=== PATIENT | female | born 1995 | race Caucasian/White ===

== ENCOUNTER 2017-08-01 13:20 | Emergency (ER) | payer OTHER ==
[2017-08-01 13:31] VITALS: BP 136/90
[2017-08-01] MEDS ORDERED: DEXAMETHASONE SOD PHOS INJ 10 MG/1 ML VIAL IM ONE (14:08)
[2017-08-01] MEDS ORDERED: KETOROLAC TROMETHAMINE 60 MG/2 ML SDV IM ONE (14:08)
--- NOTE | 2017-08-01 14:23 | ER Document Report ---
ED Extremity Problem, Upper - General Chief Complaint: Arm Injury Stated Complaint: RIGHT ARM PAIN Time Seen by Provider: 08/01/17 13:40 Mode of Arrival: Ambulatory Information source: Patient Notes: 31-year-old female presents to ED for complaint of right forearm pain on when she was lifting packages and the bag fell over and landed on her forearm. She states the back weighed between 20 and 30 pounds. She states at that time she had bruising and pain but that she does not have pain at this time. She has full range of motion for her arm and wrist. Patient states that she went to take a note to go back to work and they said she needed to go to 1 of the doctors for her Worker's Comp. So she came to the emergency room. There is no need for an x-ray as she was x-rayed at [facility] and she does not have any pain at this time. TRAVEL OUTSIDE OF THE [place] IN LAST 30 DAYS: No - HPI Patient complains to provider of: Right, Forearm Onset: Other - Recent injury: Yes Where: Work Quality of pain: Pressure, Sharp Severity of pain: Gone now Pain Level: Denies Context: Other - Luggage fell on her right forearm at work Associated symptoms: None Exacerbated by: Nothing Relieved by: Nothing Similar symptoms previously: Yes Recently seen / treated by doctor: Yes - Related Data Allergies/Adverse Reactions: No Known Allergies Allergy (Unverified 08/01/17 13:25) Past Medical History - General Information source: Patient - Social History Smoking Status: Never Smoker Cigarette use (# per day): No Chew tobacco use (# tins/day): No Smoking Education Provided: No Frequency of alcohol use: Occasional Drug Abuse: None Occupation: [employer] Lives with: Family Family History: Arthritis, CAD, COPD, DM, Hyperlipidemia, Hypertension, Malignancy, Thyroid Disfunction Patient has suicidal ideation: No Patient has homicidal ideation: No - Past Medical History Cardiac Medical History: Reports: None Pulmonary Medical History: Reports: None EENT Medical History: Reports: None Neurological Medical History: Reports: None Endocrine Medical History: Reports: None Renal/ Medical History: Reports: None Malignancy Medical History: Reports: None GI Medical History: Reports: None Musculoskeltal Medical History: Reports None Skin Medical History: Reports None Psychiatric Medical History: Reports: None Traumatic Medical History: Reports: None Infectious Medical History: Reports: None Past Surgical History: Reports: Hx Adenoidectomy, Hx Oral Surgery - Jaw surgery , Hx Tonsillectomy - Immunizations Immunizations up to date: Yes Review of Systems - Review of Systems Constitutional: No symptoms reported EENT: No symptoms reported Cardiovascular: No symptoms reported Respiratory: No symptoms reported Gastrointestinal: No symptoms reported Genitourinary: No symptoms reported Female Genitourinary: No symptoms reported Musculoskeletal: No symptoms reported Skin: No symptoms reported Hematologic/Lymphatic: No symptoms reported Neurological/Psychological: No symptoms reported -: Yes All other systems reviewed and negative Physical Exam - Vital signs Vitals: Temp Pulse Resp BP Pulse Ox 97.5 F 83 20 136/90 H 100 08/01/17 13:30 08/01/17 13:30 08/01/17 13:30 08/01/17 13:30 08/01/17 13:30 Interpretation: Normal - General General appearance: Appears well, Alert - HEENT Head: Normocephalic, Atraumatic Eyes: Normal Pupils: PERRL - Respiratory Respiratory status: No respiratory distress Chest status: Nontender Breath sounds: Normal Chest palpation: Normal - Cardiovascular Rhythm: Regular Heart sounds: Normal auscultation Murmur: No - Abdominal Inspection: Normal Distension: No distension Bowel sounds: Normal Tenderness: Nontender Organomegaly: No organomegaly - Back Back: Normal, Nontender - Extremities General upper extremity: Normal inspection, Nontender, Normal color, Normal ROM , Normal temperature General lower extremity: Normal inspection, Nontender, Normal color, Normal ROM , Normal temperature, Normal weight bearing. No: Nguyen's sign Forearm: No: Tender, Abrasion, Deformity, Ecchymosis, Instability, Laceration, Other - Neurological Neuro grossly intact: Yes Cognition: Normal Orientation: AAOx4 Lindy Coma Scale Eye Opening: Spontaneous Lindy Coma Scale Verbal: Oriented Lindy Coma Scale Motor: Obeys Commands Lindy Coma Scale Total: 15 Speech: Normal Motor strength normal: LUE, RUE, LLE, RLE Sensory: Normal - Psychological Associated symptoms: Normal affect, Normal mood - Skin Skin Temperature: Warm Skin Moisture: Dry Skin Color: Normal Course - Re-evaluation Re-evalutation: 08/01/17 14:25 No tenderness no bruising range of motion steady unlabored. Will discharge home. - Vital Signs Vital signs: Temp Pulse Resp BP Pulse Ox 97.5 F 83 20 136/90 H 100 08/01/17 13:30 08/01/17 13:30 08/01/17 13:30 08/01/17 13:30 08/01/17 13:30 Discharge - Discharge Clinical Impression: Contusion of right upper arm Qualifiers: Encounter type: initial encounter Qualified Code(s): S40.021A - Contusion of right upper arm, initial encounter Condition: Stable Disposition: HOME, SELF-CARE Instructions: Family Physicians / Practices Additional Instructions: CONTUSION: Your injury has resulted in a contusion -- a crushing of the deep tissues. No injury to important structures was detected during the physician's exam. Contusions vary in the amount of pain they cause, and in the length of time required for healing. Typically, the area will become bruised, and will remain painful to touch for two or three weeks. However, most patients are back to working and playing within a few days. After the initial period of rest and cold-packs, your symptoms (together with the doctor's recommendations) will determine how rapidly you can get back to full activity. Usually this means "do what feels okay, but don't do things that hurt." If re-examination was recommended, it's important to follow up as instructed. Call the doctor or return any time if pain increases, if swelling becomes severe, if you develop numbness or weakness in an injured extremity, or if any other alarming symptoms occur. USE OF TYLENOL (ACETAMINOPHEN): Acetaminophen may be taken for pain relief or fever control. It's much safer than aspirin, offering a wider range of "safe" dosages. It is safe during . Some brand names are Tylenol, Panadol, Datril, Anacin 3, Tempra, and Liquiprin. Acetaminophen can be repeated every four hours. The following are maximum recommended dosages: WEIGHT Dose Drops Elixir Chewable( 80mg) (LBS.) drprs=droppers tsp=teaspoon 6 40 mg 0.4 ml (1/2) 6-11 80 mg 0.8 ml (full) tsp 1 tab 12-16 120 mg 1 1/2 drprs 3/4 tsp 1 1/2 tabs 17-23 160 mg 2 drprs 1 tsp 2 tabs 24-30 240 mg 3 drprs 1 1/2 tsp 3 tabs 30-35 320 mg 2 tsp 4 tabs 36-41 360 mg 2 1/4 tsp 4 1/2 tabs 42-47 400 mg 2 1/2 tsp 5 tabs 48-53 480 mg 3 tsp 6 tabs 54-59 520 mg 3 1/4 tsp 6 1/2 tabs 60-64 560 mg 3 1/2 tsp 7 tabs 65-70 600 mg 3 3/4 tsp 7 1/2 tabs 71-76 640 mg 4 tsp 8 tabs 77-82 720 mg 4 1/2 tsp 9 tabs 83-88 800 mg 5 tsp 10 tabs >89 pounds or adults 650 mg to 900 mg Acetaminophen can be repeated every four hours. Maximum dose not to exceed 4000 mg a day. These maximum recommended dosages are slightly higher than the dosages written on the product container, but these dosages are very safe and below the toxic dosage for acetaminophen. ICE & ELEVATION: Apply ice packs frequently against the painful area. Many different schedules are recommended, such as "20 minutes on, 20 minutes off" or "one hour ice, two hours rest." If you need to work, you may need to go longer between ice treatments. You should plan to have the area ice packed AT LEAST one- fourth of the time. The ice should be applied over the wrap, tape, or splint, or over a layer of cloth -- not directly against the skin. Some ice bags have a built-in cloth and can be put directly on the skin. Your injured part should be elevated as much as possible over the next 48 hours. Try to keep the injury above the level of the heart. Avoid use of the injured area. Elevation and rest will decrease the swelling. USE OF CFIQ-IVV-QHWPRCI IBUPROFEN: Ibuprofen (Advil, Nuprin, Medipren, Motrin IB) is a medication for fever and pain control. In addition, it has anti- inflammatory effects which may be beneficial, especially in the treatment of injuries. It's best to take ibuprofen with food. Persons with ulcer disease or allergy to aspirin should notify their physician of this before taking ibuprofen. Ibuprofen can be given every four to six hours, for a total of four doses daily. Age Pain or fever dose Antiinflammatory dose 6-8 yr 200 mg (1 tab) 200 mg (1 tab) 9-11 yr 200 mg (1 tab) 200-400 mg (1-2 tab) 11-14 yr 200-400 mg (1-2 tab) 400 mg (2 tab) 15-adult 400 mg (2 tab) 600 mg (3 tab) FOLLOW-UP CARE: If you have been referred to a physician for follow-up care, call the physician s office for an appointment as you were instructed or within the next two days. If you experience worsening or a significant change in your symptoms, notify the physician immediately or return to the Emergency Department at any time for re-evaluation. Forms: Elevated Blood Pressure, Return to Work
== END 2017-08-01 14:23 | disposition home or self-care (01) ==
LOC: ER 13:20
DX: S40.021A Contusion of right upper arm, initial encounter (principal); W20.8XXA Other cause of strike by thrown, projected or falling object, initial encounter; Y99.0 Civilian activity done for income or pay; M79.631 Pain in right forearm
CPT/HCPCS: 99281

== ENCOUNTER 2018-02-05 13:10 | Emergency (ER) | payer OTHER ==
--- NOTE | 2018-02-05 13:41 | ER Document Report ---
ED GI/ - General Chief Complaint: Urinary Problem Stated Complaint: ABDOMINAL PAIN Time Seen by Provider: 02/05/18 13:40 Mode of Arrival: Ambulatory Information source: Patient TRAVEL OUTSIDE OF THE [place] IN LAST 30 DAYS: No - HPI Patient complains to provider of: Abdominal pain, Other - URINARY INCONTINENCE Onset: This morning Timing/Duration: Sudden Quality of pain: Burning, Cramping, Sharp Severity at maximum: Moderate Severity in ED: Moderate Context: Other - KNOWN INTRA-ABDOMINAL MALIGNANCY, ON CHEMOTx. denies: Bad food , Lifting, Out of the country travel, , Recent trauma Vaginal bleeding (Compared to normal period): None Menstrual period history: Abnormal - AMENORRHEIC W/ CHEMOTx. denies: Associated symptoms: Nausea, Urinary frequency. denies: Chills, Diarrhea, Fever , Hematuria Exacerbated by: Denies Relieved by: Denies Similar symptoms previously: No Recently seen / treated by doctor: Yes - ROUTINE F/U W/ ONCOLOGY - Related Data Allergies/Adverse Reactions: No Known Allergies Allergy (Verified 02/05/18 13:11) Past Medical History - General Information source: Patient - Social History Smoking Status: Never Smoker Cigarette use (# per day): No Chew tobacco use (# tins/day): No Frequency of alcohol use: None Drug Abuse: None Lives with: Spouse/Significant other Family History: Arthritis, CAD, COPD, DM, Hyperlipidemia, Hypertension, Malignancy, Thyroid Disfunction Patient has suicidal ideation: No Patient has homicidal ideation: No - Past Medical History Cardiac Medical History: Reports: None Pulmonary Medical History: Reports: None EENT Medical History: Reports: None Neurological Medical History: Reports: None Endocrine Medical History: Reports: None Renal/ Medical History: Reports: None. Denies: Hx Peritoneal Dialysis Malignancy Medical History: Reports: Other - SEE HPI GI Medical History: Reports: None Musculoskeltal Medical History: Reports None Psychiatric Medical History: Reports: None Past Surgical History: Reports: Hx Adenoidectomy, Hx Oral Surgery - Jaw surgery , Hx Tonsillectomy - Immunizations Immunizations up to date: Yes Review of Systems - Review of Systems Constitutional: No symptoms reported EENT: No symptoms reported Cardiovascular: No symptoms reported Respiratory: No symptoms reported Gastrointestinal: See HPI Genitourinary: See HPI Female Genitourinary: See HPI Musculoskeletal: No symptoms reported Skin: No symptoms reported Neurological/Psychological: No symptoms reported Physical Exam - Vital signs Vitals: Temp Pulse Resp BP Pulse Ox 98.7 F 128 H 20 121/85 100 02/05/18 13:19 02/05/18 13:19 02/05/18 13:19 02/05/18 13:19 02/05/18 13:19 Interpretation: Tachycardic - SAYS SHE'S MILDLY TACHYCARDIC @ BASELINE. No: Hypotensive, Tachypneic, Febrile - General General appearance: Appears well, Alert In distress: None - HEENT Head: Normocephalic Eyes: Normal. No: Pale conjunctiva Conjunctiva: Normal Ears: Normal Nasal: Normal Mouth/Lips: Normal Mucous membranes: Dry - MILDLY Pharynx: Normal Neck: Normal - Respiratory Respiratory status: No respiratory distress Breath sounds: Normal - Cardiovascular Rhythm: Regular Heart sounds: Normal auscultation Murmur: No - Abdominal Inspection: Normal Distension: No distension Bowel sounds: Hypoactive Tenderness: Tender - MILD, SUPRAPUBIC - Back Back: Normal. No: CVA tenderness - Extremities General upper extremity: Normal inspection General lower extremity: Normal inspection - Neurological Neuro grossly intact: Yes Cognition: Normal Orientation: AAOx4 - Psychological Associated symptoms: Normal affect, Normal mood - Skin Skin Temperature: Warm Skin Moisture: Dry Skin Color: Normal Skin Turgor: Elastic Course - Vital Signs Vital signs: Temp Pulse Resp BP Pulse Ox 98.7 F 128 H 21 H 113/79 100 02/05/18 13:19 02/05/18 13:19 02/05/18 16:01 02/05/18 16:00 02/05/18 16:01 - Laboratory Result Diagrams: 02/05/18 15:20 02/05/18 15:20 Laboratory results interpreted by me: 02/05/18 02/05/18 02/05/18 15:20 15:20 15:20 RDW 15.0 H Calcium 10.5 H Total Protein 8.4 H Urine Ketones TRACE H Urine Urobilinogen 2.0 H - Consults DR. JEFFREY Time consulted: 17:43 Reason for consultation: 02/05/18 17:53 Discussed patient's presentation, physical findings, and laboratory results with Dr. Jeffrey, who accessed patient's oncology records. She advised that imaging studies are not indicated at the present time, as patient had a negative PET scan 6 weeks ago. Also, she feels it is reasonable to treat the urinary tract infection with oral antibiotics and urinary analgesics. She or someone from her office will follow up with patient by phone on Thursday. Plan discussed with patient and spouse, and they are pleased. Consulted provider: follow-up in office Discharge - Discharge Clinical Impression: Dehydration, Intra-abdominal malignant neoplasm Urinary tract infection Qualifiers: Urinary tract infection type: acute cystitis Hematuria presence: without hematuria Qualified Code(s): N30.00 - Acute cystitis without hematuria Condition: Stable Disposition: HOME, SELF-CARE Instructions: Ciprofloxacin ([facility]), Rocephin ([facility]), Urinary Anesthetic Agent ( [facility]), Urinary Tract Infection ([facility]) Additional Instructions: REST, DRINK PLENTY OF FLUIDS. TAKE CIPRO AND PYRIDIUM DIRECTED, BEGIN THIS EVENING. CONTINUE ALL OF YOUR USUAL MEDS. FOLLOW UP WITH YOUR ONCOLOGIST SCHEDULED (SOMEONE FROM THEIR OFFICE WILL CALL THURSDAY TO CHECK ON YOU). RETURN TO E.R. IF PROBLEMS, ANY TIME. Prescriptions: Ciprofloxacin HCl [Cipro 500 mg Tablet] 500 mg PO BID #20 tablet Phenazopyridine HCl [Pyridium 200 mg Tablet] 200 mg PO TID #15 tablet
[2018-02-05 15:36] LABS: ABSOLUTE BASOPHILS # (AUTO) 0.1 10^3/uL (0.0-0.2); ABSOLUTE EOSINOPHILS # (AUTO) 0.2 10^3/uL (0.0-0.6); ABSOLUTE MONOCYTES (AUTO) 0.5 10^3/uL (0.1-1.4); ABSOLUTE NEUT (AUTO) 5.7 10^3/uL (1.7-8.2); BASOPHILS % (AUTO) 0.7 % (0-2); EOSINOPHILS % (AUTO) 1.9 % (0-6); HEMATOCRIT 43.5 % (36.0-47.0); HEMOGLOBIN 14.6 g/dL (12.0-15.5); LYMPHOCYTES % (AUTO) 31.7 % (13-45); MEAN CORPUSCULAR HEMOGLOBIN 27.7 pg (27.0-33.4); MEAN CORPUSCULAR HGB CONC 33.6 g/dL (32.0-36.0); MEAN CORPUSCULAR VOLUME 83 fl (80-97); MONOCYTES % (AUTO) 5.1 % (3-13); PLATELET COUNT 197 10^3/uL (150-450); RED BLOOD COUNT 5.28 10^6/uL (3.72-5.28); SEGMENTED NEUTROPHILS % (AUTO) 60.6 % (42-78); TOTAL CELLS COUNTED % (AUTO) 100 %; WHITE BLOOD COUNT 9.5 10^3/uL (4.0-10.5)
[2018-02-05 16:00] LABS: ALANINE AMINOTRANSFERASE 31 U/L (9-52); ALKALINE PHOSPHATASE 48 U/L (38-126); ANION GAP 15 (5-19); ASPARTATE AMINO TRANSFERASE 22 U/L (14-36); BILIRUBIN,DIRECT 0.4 mg/dL (0.0-0.4); BILIRUBIN,TOTAL 1.2 mg/dL (0.2-1.3); BLOOD UREA NITROGEN 19 mg/dL (7-20); CALCIUM 10.5 mg/dL (8.4-10.2); CARBON DIOXIDE 29 mmol/L (22-30); CHLORIDE 101 mmol/L (98-107); GLUCOSE 84 mg/dL (75-110); POTASSIUM 4.5 mmol/L (3.6-5.0); SODIUM 144.8 mmol/L (137-145); TOTAL PROTEIN 8.4 g/dL (6.3-8.2)
[2018-02-05 16:09] LABS: AMORPHOUS SEDIMENT,URINE TRACE /HPF; APPEARANCE,URINE TURBID; BILIRUBIN,URINE NEGATIVE (NEGATIVE); COLOR,URINE YELLOW; GLUCOSE, URINE NEGATIVE (NEGATIVE); KETONES,URINE TRACE mg/dL (NEGATIVE); LEUKOCYTE ESTERASE,URINE NEGATIVE (NEGATIVE); NITRITE,URINE NEGATIVE (NEGATIVE); PROTEIN,URINE NEGATIVE (NEGATIVE); URINE SPECIFIC GRAVITY 1.029
[2018-02-05] MEDS ORDERED: CEFTRIAXONE INJ 1000 MG VIAL IM ONE ×2 (17:32→17:33)
[2018-02-05] MEDS ORDERED: LIDOCAINE 1% INJ-PF (10 MG/ML) 30 ML SDV INFIL ONE (17:33)
[2018-02-05 18:40] VITALS: BP 102/78
== END 2018-02-05 18:39 | disposition home or self-care (01) ==
LOC: ER 13:10
DX: C76.2 Malignant neoplasm of abdomen (principal); N30.00 Acute cystitis without hematuria; E86.0 Dehydration; R39.198 Other difficulties with micturition; R10.9 Unspecified abdominal pain; R32 Unspecified urinary incontinence; R11.0 Nausea; R35.0 Frequency of micturition
CPT/HCPCS: 99283; 96372; 36415; 87086; 85025; 80053; 81001; J3490; J0696

== ENCOUNTER 2019-04-21 21:50 | Emergency (ER) | payer OTHER ==
[2019-04-22 00:29] LABS: ABSOLUTE BASOPHILS # (AUTO) 0.1 10^3/uL (0.0-0.2); ABSOLUTE EOSINOPHILS # (AUTO) 0.1 10^3/uL (0.0-0.6); ABSOLUTE LYMPHOCYTES (AUTO) 3.2 10^3/uL (0.5-4.7); ABSOLUTE MONOCYTES (AUTO) 0.8 10^3/uL (0.1-1.4); ABSOLUTE NEUT (AUTO) 7.1 10^3/uL (1.7-8.2); BASOPHILS % (AUTO) 0.6 % (0-2); EOSINOPHILS % (AUTO) 1.2 % (0-6); HEMATOCRIT 34.5 % (36.0-47.0); HEMOGLOBIN 11.4 g/dL (12.0-15.5); LYMPHOCYTES % (AUTO) 28.2 % (13-45); MEAN CORPUSCULAR HEMOGLOBIN 26.8 pg (27.0-33.4); MEAN CORPUSCULAR HGB CONC 33.1 g/dL (32.0-36.0); MEAN CORPUSCULAR VOLUME 81 fl (80-97); MONOCYTES % (AUTO) 7.1 % (3-13); PLATELET COUNT 161 10^3/uL (150-450); RED BLOOD COUNT 4.26 10^6/uL (3.72-5.28); RED CELL DISTRIBUTION WIDTH 13.3 % (11.5-14.0); SEGMENTED NEUTROPHILS % (AUTO) 62.9 % (42-78); TOTAL CELLS COUNTED % (AUTO) 100 %; WHITE BLOOD COUNT 11.2 10^3/uL (4.0-10.5)
[2019-04-22 00:46] LABS: ALBUMIN 4.3 g/dL (3.5-5.0); ALKALINE PHOSPHATASE 75 U/L (38-126); ANION GAP 12 (5-19); ASPARTATE AMINO TRANSFERASE 38 U/L (14-36); BILIRUBIN,DIRECT 0.4 mg/dL (0.0-0.4); BILIRUBIN,TOTAL 1.3 mg/dL (0.2-1.3); BLOOD UREA NITROGEN 9 mg/dL (7-20); CALCIUM 9.1 mg/dL (8.4-10.2); CARBON DIOXIDE 26 mmol/L (22-30); CHLORIDE 94 mmol/L (98-107); POTASSIUM 3.8 mmol/L (3.6-5.0)
[2019-04-22 00:51] LABS: APPEARANCE,URINE CLEAR; BILIRUBIN,URINE NEGATIVE (NEGATIVE); COLOR,URINE STRAW; GLUCOSE, URINE NEGATIVE (NEGATIVE); KETONES,URINE 80 mg/dL (NEGATIVE); LEUKOCYTE ESTERASE,URINE TRACE (NEGATIVE); NITRITE,URINE NEGATIVE (NEGATIVE); PROTEIN,URINE NEGATIVE (NEGATIVE); URINE SPECIFIC GRAVITY 1.005; UROBILINOGEN,URINE NEGATIVE mg/dL (<2.0)
[2019-04-22 00:52] LABS: GLUCOSE 65 mg/dL (75-110)
[2019-04-22] MEDS ORDERED: ONDANSETRON HCL INJ/PF 4 MG/2 ML SDV IV ONE (01:21)
[2019-04-22] MEDS ORDERED: FENTANYL CITRATE INJ/PF 100 MCG/2 ML AMPUL IV ONE (01:21)
--- NOTE | 2019-04-22 02:34 | RADIOLOGY REPORT (SQ) ---
EXAM DESCRIPTION: CT ABDOMEN PELVIS WITH IV CONTRAST COMPLETED DATE/TME: 04/22/2019 01:21 CLINICAL HISTORY: 23 years, Female, RLQ pain. HCG NEG COMPARISON: None. TECHNIQUE: Axial CT images of the abdomen and pelvis were obtained after the administration of IV contrast. Sagittal and coronal reformats were performed. DLP [id number] Images stored on PACS. All CT scanners at this facility use dose modulation, iterative reconstruction, and/or weight based dosing when appropriate to reduce radiation dose to as low as reasonably achievable (ALARA). [facility]: Dose Right [facility]: CareDose [facility]: Dose Right [facility]: Teradose 4D [facility]: Aceris 3D Inspection LIMITATIONS: None. FINDINGS: The lung bases are clear. The liver, gallbladder, spleen, and adrenal glands are unremarkable. There is stranding and soft tissue density posterior to the pancreas and adjacent duodenum with nearby retroperitoneal lymph nodes measuring up to 9 mm in size. Both kidneys appear normal. No evidence of hydronephrosis or hydroureter. The abdominal aorta is normal in caliber. There is no free air. There is a mild amount of free fluid within the pelvis. The stomach appears unremarkable. There is no evidence of a bowel obstruction. The appendix is normal. The colon contains a moderate amount of stool. The uterus, adnexa, and urinary bladder are unremarkable. There are no lytic or blastic bone lesions IMPRESSION: Mild stranding with soft tissue density posterior to the pancreas and duodenum with adjacent reactive borderline lymph nodes. This may be due to acute pancreatitis or duodenitis. Recommend correlation with amylase and lipase. Normal appendix. TECHNICAL DOCUMENTATION: Quality ID # [id number]: Final reports with documentation of one or more dose reduction techniques (e.g., Automated exposure control, adjustment of the mA and/or kV according to patient size, use of iterative reconstruction technique) copyright 2010 [employer]- All Rights Reserved
[2019-04-22] MEDS ORDERED: DEXTROSE 5%-NORMAL SALINE 1,000 ML IV ONE (02:54)
[2019-04-22] MEDS ORDERED: CEFTRIAXONE 1 GM/D5W RTU 1 GM/50 ML RTUPB IV ONE (02:54)
--- NOTE | 2019-04-22 03:06 | ER Document Report ---
ED General - General Chief Complaint: Abdominal Pain Stated Complaint: ABDOMINAL PAIN Time Seen by Provider: 04/22/19 00:22 Primary Care Provider: ARJUN GRAY DO [Primary Care Provider] - Follow up as needed Notes: Patient is a 23-year-old female presents to the emergency department for right lower abdominal pain. States this pain started on Thursday. Patient states on Thursday she presented to the [facility] emergency departments. States she was told "everything is fine." Patient states she did undergo an ultrasound at that time. Patient states she feels as though she may have also gotten a CT image at that time. Patient states they told her to return to the emergency department should she develop a fever or have continued pain. Patient states today she had a subjective fever which is why she represents to the emergency room. Patient's denying any nausea, vomiting, diarrhea she is denying any vaginal discharge. Patient is admitting to generalized dysuria. 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 Patient states she had this tumor removed approximately 6 weeks ago via her oncologist Dr. Vogt. Patient does not reach out to her oncologist about this generalized abdominal pain since it started on Thursday. TRAVEL OUTSIDE OF THE [place] IN LAST 30 DAYS: No - Related Data Allergies/Adverse Reactions: No Known Allergies Allergy (Verified 02/05/18 13:11) Past Medical History - General Information source: Patient - Social History Smoking Status: Never Smoker Chew tobacco use (# tins/day): No Frequency of alcohol use: None Drug Abuse: None Family History: Arthritis, CAD, COPD, DM, Hyperlipidemia, Hypertension, Malignancy, Thyroid Disfunction Patient has suicidal ideation: No Patient has homicidal ideation: No Renal/ Medical History: Denies: Hx Peritoneal Dialysis Past Surgical History: Reports: Hx Adenoidectomy, Hx Oral Surgery - Jaw surgery, Hx Tonsillectomy - Immunizations Immunizations up to date: Yes Review of Systems - Review of Systems Constitutional: Fever EENT: No symptoms reported Cardiovascular: No symptoms reported Respiratory: No symptoms reported Gastrointestinal: See HPI Genitourinary: See HPI Female Genitourinary: See HPI Musculoskeletal: No symptoms reported Skin: No symptoms reported Hematologic/Lymphatic: No symptoms reported Neurological/Psychological: No symptoms reported Physical Exam - Vital signs Vitals: Temp Pulse Resp BP Pulse Ox 99.7 F 109 H 18 122/82 95 08/29/19 21:54 04/21/19 21:54 04/21/19 21:54 04/21/19 21:54 04/21/19 21:54 - Notes Notes: GENERAL: Alert, interacts well. No acute distress. HEAD: Normocephalic, atraumatic. EYES: Pupils equal, round, and reactive to light. Extraocular movements intact. ENT: Oral mucosa moist, tongue midline. NECK: Full range of motion. Supple. Trachea midline. LUNGS: Clear to auscultation bilaterally, no wheezes, rales, or rhonchi. No respiratory distress. HEART: Regular rate and rhythm. No murmur ABDOMEN: Soft, Non-distended. Bowel sounds present in all 4 quadrants. Generalized right lower quadrant abdominal pain, no right pelvic pain noted. No Alan sign noted, no epigastric abdominal pain, no left upper or left lower abdominal pain noted. EXTREMITIES: Moves all 4 extremities spontaneously. No edema, normal radial and dorsalis pedis pulses bilaterally. No cyanosis. BACK: no cervical, thoracic, lumbar midline tenderness. No saddle anesthesia, normal distal neurovascular exam. No CVA tenderness noted bilaterally NEUROLOGICAL: Alert and oriented x3. Normal speech. cranial nerves II through XII grossly intact. PSYCH: Normal affect, normal mood. SKIN: Warm, dry, normal turgor. No rashes or lesions noted. Course - Re-evaluation Re-evalutation: 04/22/19 03:04 Laboratory 04/22/19 04/22/19 04/22/19 00:13 00:13 00:13 WBC 11.2 H RBC 4.26 Hgb 11.4 L Hct 34.5 L MCV 81 MCH 26.8 L MCHC 33.1 RDW 13.3 Plt Count 161 Lymph % (Auto) 28.2 [place] % (Auto) 7.1 Eos % (Auto) 1.2 Baso % (Auto) 0.6 Absolute Neuts (auto) 7.1 Absolute Lymphs (auto) 3.2 Absolute Monos (auto) 0.8 Absolute Eos (auto) 0.1 Absolute Basos (auto) 0.1 Seg Neutrophils % 62.9 Sodium 132.1 L Potassium 3.8 Chloride 94 L Carbon Dioxide 26 Anion Gap 12 BUN 9 Creatinine 0.64 Est GFR ( Amer) > 60 Est GFR (MDRD) Non-Af > 60 Glucose 65 L Calcium 9.1 Total Bilirubin 1.3 Direct Bilirubin 0.4 Neonat Total Bilirubin Not Reportable Neonat Direct Bilirubin Not Reportable Neonat Indirect Bili Not Reportable AST 38 H ALT 24 Alkaline Phosphatase 75 Total Protein 7.0 Albumin 4.3 Lipase 37.9 Urine Color STRAW Urine Appearance CLEAR Urine pH 6.0 Ur Specific Reeder 1.005 Urine Protein NEGATIVE Urine Glucose (UA) NEGATIVE Urine Ketones 80 H Urine Blood NEGATIVE Urine Nitrite NEGATIVE Urine Bilirubin NEGATIVE Urine Urobilinogen NEGATIVE Ur Leukocyte Esterase TRACE H Urine WBC (Auto) 8 Urine RBC (Auto) 0 Urine Bacteria (Auto) TRACE Squamous Epi Cells Auto 1 Urine Mucus (Auto) RARE Urine Ascorbic Acid NEGATIVE Urine HCG, Qual NEGATIVE Abdomen/Pelvis CT 04/22/19 01:21 IMPRESSION: Mild stranding with soft tissue density posterior to the pancreas and duodenum with adjacent reactive borderline lymph nodes. This may be due to acute pancreatitis or duodenitis. Recommend correlation with amylase and lipase. Normal appendix. TECHNICAL DOCUMENTATION: Quality ID # [id number]: Final reports with documentation of one or more dose reduction techniques (e.g., Automated exposure control, adjustment of the mA and/or kV according to patient size, use of iterative reconstruction technique) copyright 2011 [employer]- All Rights Reserved I discussed this case with my attending Dr. Minor. He is suggesting D5 normal saline bolus as well as starting IV antibiotics for urinary tract infection. Recommend sending patient home on Keflex for continued care of urinary tract infection with close follow-up with patient's oncologist. On reexamination of the patient she states her pain has somewhat subsided. Reexamination of her abdomen continues with no pain right upper quadrant, epigastric, left upper quadrant. Minor tenderness noted right lower quadrant at this time. At this time will discharge with return precautions and follow-up recommendations. Verbal discharge instructions given a the bedside and opportunity for questions given. Medication warnings reviewed. Patient is in agreement with this plan and has verbalized understanding of return precautions and the need for primary care follow-up in the next 24-72 hours. This medical record was dictated with voice recognizing software. There may be grammatical, syntax errors that are unintended. - Vital Signs Vital signs: Temp Pulse Resp BP Pulse Ox 99.7 F 109 H 18 122/82 95 04/21/19 21:54 04/21/19 21:54 04/21/19 21:54 04/21/19 21:54 04/21/19 21:54 - Laboratory Result Diagrams: 04/22/19 00:13 04/22/19 00:13 Laboratory results interpreted by me: 04/22/19 04/22/19 04/22/19 00:13 00:13 00:13 WBC 11.2 H Hgb 11.4 L Hct 34.5 L MCH 26.8 L Sodium 132.1 L Chloride 94 L Glucose 65 L AST 38 H Urine Ketones 80 H Ur Leukocyte Esterase TRACE H Discharge - Discharge Clinical Impression: Right lower quadrant abdominal pain Urinary tract infection Qualifiers: Urinary tract infection type: acute cystitis Hematuria presence: without hematuria Qualified Code(s): N30.00 - Acute cystitis without hematuria Condition: Stable Disposition: HOME, SELF-CARE Instructions: Abdominal Pain ([facility]), Cephalexin ([facility]), Urinary Tract Infection ([facility]) Additional Instructions: as we discussed you have been seen and treated in the emergency department for your abdominal pain. You have been diagnosed with a urinary tract infection. Please take antibiotics as prescribed. Please also make sure you call your oncologist in the morning. Please follow-up with a primary care provider as well in the next 24 to 48 hours. Return to the emergency room for any further concerns. Prescriptions: Cephalexin Monohydrate [Keflex 500 mg Capsule] 500 mg PO BID 7 Days #14 capsule Referrals: ARJUN GRAY DO [Primary Care Provider] - Follow up as needed
[2019-04-22] MEDS ORDERED: CEFTRIAXONE INJ 1000 MG VIAL ONE (03:08)
[2019-04-22 04:35] VITALS: BP 106/55
== END 2019-04-22 04:35 | disposition home or self-care (01) ==
LOC: ER 21:50
DX: N30.00 Acute cystitis without hematuria (principal); R10.31 Right lower quadrant pain; R50.9 Fever, unspecified; Z79.899 Other long term (current) drug therapy
CPT/HCPCS: 36415; 87040; 87086; 83690; 85025; 81025; 87088; 80053; 81001; 74177; J3010; J0696; J2405; J7042; J1642; 36591; 96361; 96365; 96375; 99284